=== PATIENT | male | born 1990 | race Hispanic/Latino ===

== ENCOUNTER 2019-09-19 01:06 | Emergency (ER) | payer OTHER, SELFPAY ==
[2019-09-19] MEDS ORDERED: Acetaminophen 500 MG TAB ONE (01:24)
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
== END 2019-09-19 01:53 | disposition home or self-care (01) ==
LOC: EDUNIT# 01:06 → MERGE 01:06 → ERS 01:06
DX: S90.31XA Contusion of right foot, initial encounter (principal); Z79.899 Other long term (current) drug therapy; K74.60 Unspecified cirrhosis of liver; F17.210 Nicotine dependence, cigarettes, uncomplicated; V19.9XXA Pedal cyclist (driver) (passenger) injured in unspecified traffic accident, initial encounter

== ENCOUNTER 2019-09-20 23:10 | Emergency (ER) | payer SELFPAY | END 2019-09-20 23:51 | disposition home or self-care (01) | LOC: EDUNIT# 23:10 → ERS 23:10 | DX: F10.10 Alcohol abuse, uncomplicated (principal); N17.9 Acute kidney failure, unspecified; I10 Essential (primary) hypertension; K74.60 Unspecified cirrhosis of liver; F41.9 Anxiety disorder, unspecified; Z79.899 Other long term (current) drug therapy | CPT/HCPCS: 99281 ==

== ENCOUNTER 2019-09-23 02:58 | Emergency (ER) | payer OTHER, SELFPAY ==
[2019-09-23] MEDS ORDERED: Oxymetazoline HCl 0.05% (30 ML BOT) ONE (03:46)
== END 2019-09-23 04:10 | disposition home or self-care (01) ==
LOC: ERS 02:58
DX: R04.0 Epistaxis (principal); I89.0 Lymphedema, not elsewhere classified; K74.60 Unspecified cirrhosis of liver; F32.9 Major depressive disorder, single episode, unspecified
CPT/HCPCS: 99283

== ENCOUNTER 2019-09-23 22:09 | Emergency (ER) | payer OTHER, SELFPAY ==
[2019-09-23 22:38] LABS: Bacteria/HPF None Seen HPF (None Seen); Bilirubin 1+ (Negative); Blood, Urine 2+ (Negative); Clarity Turbid (Clear); Glucose, Urine (Dipstick) Normal (Negative); Leukocyte Negative Leu/uL (Negative); Nitrite Negative (Negative); Protein, Urine (Dipstick) Negative (Neg-Trace); Squamous Epithelial 0-3 HPF (0-3); WBC/HPF 0-3 HPF (0-3)
[2019-09-23 22:47] LABS: Benzodiazepine Screen Detected (NotDetected); Medtox Reader # READER 4
[2019-09-23 22:48] LABS: Amphetamine Not Detected (NotDetected); Barbiturates Screen Not Detected (NotDetected); Cocaine Metabolite Screen Not Detected (NotDetected); Medtox Control Line Valid? VALID (VALID); Methadone Not Detected (NotDetected); Methamphetamine Not Detected (NotDetected); Opiate Screen Not Detected (NotDetected); Oxycodone Screen Not Detected (NotDetected); Phencyclidine (PCP) Not Detected (NotDetected); THC/Cannabinoid Screen Not Detected (NotDetected); Tricyclic Screen Not Detected (NotDetected)
== END 2019-09-23 23:45 | disposition home or self-care (01) ==
LOC: ERS 22:09
DX: R51 Headache (principal); K74.60 Unspecified cirrhosis of liver; F32.9 Major depressive disorder, single episode, unspecified
CPT/HCPCS: 80306; 81003; 81015; 99284

== ENCOUNTER 2019-09-24 21:56 | Emergency (ER) | payer SELFPAY | END 2019-09-24 23:52 | disposition left against medical advice (07) | LOC: ERS 21:56 → MERGE 21:56 → ERS 23:52 | DX: Z53.21 Procedure and treatment not carried out due to patient leaving prior to being seen by health care provider (principal) ==

== ENCOUNTER 2019-09-26 21:31 | Inpatient (IN) | payer SELFPAY ==
[2019-09-26 22:45] LABS: Bacteria/HPF None Seen HPF (None Seen); Bilirubin 1+ (Negative); Blood, Urine 2+ (Negative); Clarity Clear (Clear); Glucose, Urine (Dipstick) Normal (Negative); Leukocyte Negative Leu/uL (Negative); Nitrite Negative (Negative); Protein, Urine (Dipstick) Negative (Neg-Trace); Squamous Epithelial None Seen HPF (0-3); Urobilinogen Greater than 12 mg/dL (Less than 2); WBC/HPF 0-3 HPF (0-3)
[2019-09-26 22:53] LABS: #Basophils 0.1 thou/uL (0.0-0.2); #Eosinphils 0.1 thou/uL (0.0-0.7); #Lymphocytes 1.6 thou/uL (1.20-3.40); #Monocytes 0.3 thou/uL (0.11-0.59); %Basophils 1.6 % (0.0-1.0); %Eosinophils 1.6 % (0.0-10.0); %Lymphocytes 26.3 % (21.0-51.0); %Monocytes 4.7 % (0.0-10.0); %Neutrophils 65.7 % (42.0-75.0); Hemoglobin 11.1 g/dL (14.0-18.0); Mean Corpuscular HGB CONC 32.9 g/dL (32.0-36.0); Mean Corpuscular Hemoglobin 35.1 pg (27.0-31.0); Mean Platelet Volume 10.3 fL (7.4-10.4); Platelet Count 50 thou/uL (130-400); RBC Distribution Width 16.2 % (11.5-14.5); Red Blood Cell (RBC) Count 3.17 mill/uL (4.70-6.10); White Blood Cell (WBC) Count 6.1 thou/uL (4.8-10.8)
[2019-09-26 22:54] LABS: Amphetamine Not Detected (NotDetected); Barbiturates Screen Not Detected (NotDetected); Benzodiazepine Screen Detected (NotDetected); Cocaine Metabolite Screen Not Detected (NotDetected); Medtox Control Line Valid? VALID (VALID); Medtox Reader # READER 4; Methadone Not Detected (NotDetected); Methamphetamine Not Detected (NotDetected); Opiate Screen Not Detected (NotDetected); Oxycodone Screen Not Detected (NotDetected); Phencyclidine (PCP) Not Detected (NotDetected); THC/Cannabinoid Screen Not Detected (NotDetected); Tricyclic Screen Not Detected (NotDetected)
[2019-09-26 23:05] LABS: ALT (SGPT) 71 U/L (8-55); AST (SGOT) 155 U/L (5-34); Albumin 2.8 g/dL (3.5-5.0); Alkaline Phosphatase 188 U/L (40-110); Anion Gap 14 mmol/L (10-20); BUN (Urea Nitrogen) 6 mg/dL (8.9-20.6); Bilirubin, Total 8.5 mg/dL (0.2-1.2); Calc. Creatinine Clearance 0 mL/min (70-130); Calcium 7.9 mg/dL (7.8-10.44); Carbon Dioxide 27 mmol/L (22-29); Chloride 104 mmol/L (98-107); Estimated GFR-MDRD Greater than 90; Globulin 4.1 g/dL (2.4-3.5); Glucose 121 mg/dL (70-105); Lipase 50 U/L (8-78); Potassium 3.7 mmol/L (3.5-5.1); Protein, Total 6.9 g/dL (6.0-8.3); Sodium 141 mmol/L (136-145)
[2019-09-26 23:06] LABS: Acetaminophen Less than 6.0 mcg/mL (10.0-30.0); Alcohol 389 mg/dL (Less than 10); Magnesium 1.4 mg/dL (1.6-2.6); Salicylate Less than 8.0 mg/dL (15.0-30.0)
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
[2019-09-27] MEDS ORDERED: chlordiazePOXIDE HCl 25 MG CAP PO PRN (03:14)
[2019-09-27] MEDS ORDERED: Sodium Chloride 0.9% 1,000 ML IV SCH (03:15)
[2019-09-27] MEDS ORDERED: Ondansetron PF 4 MG/2 ML Vial IVP PRN (03:15)
[2019-09-27] MEDS ORDERED: Ondansetron ODT 4 MG TAB SL PRN (03:15)
[2019-09-27 03:42] VITALS: BMI 32.2
[2019-09-27] MEDS ORDERED: Diazepam 5 MG TAB PO PRN (03:58)
[2019-09-27] MEDS ORDERED: Diazepam 5 MG TAB PO SCH (04:00)
[2019-09-27] MEDS ORDERED: Folic Acid 1 MG TAB PO SCH (04:00)
[2019-09-27] MEDS ORDERED: Thiamine 100 MG TAB PO SCH (04:00)
[2019-09-27] MEDS ORDERED: Magnesium Oxide 400 MG TAB PO SCH (04:00)
[2019-09-27] MEDS: Acetaminophen 325 MG TAB PO PRN ×2 (04:30→09:27)
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
[2019-09-27 06:52] LABS: INR-International Normal Ratio 1.9; PTT 48.9 SEC (22.9-36.1); Prothrombin Time 21.4 sec (12.0-14.7)
[2019-09-27 07:06] LABS: Magnesium 1.4 mg/dL (1.6-2.6); Phosphorus 2.6 mg/dL (2.3-4.7)
--- NOTE | 2019-09-27 08:12 | ULT ---
Exam: Right upper quadrant ultrasound: HISTORY: Cirrhosis COMPARISON: 07/18/2017 FINDINGS: Liver: At the upper limits normal in size measuring 17 cm in craniocaudal dimensions. Mildly coarsene d hepatic echotexture is present which is nonspecific and similar to prior exam. This may be attributable to fatty infiltration. No focal hepatic lesion is appreciated. Upper evaluation of the m ain portal vein was performed which demonstrates abnormal directional flow with suggestion of hepatofugal flow in the main portal vein. Gallbladder: Shadowing echogenic foci are seen within the gallbladder lumen compatible with gallbladd er calculi. In addition, there is echogenic material in the gallbladder most compatible with sludge. No gallbladder wall thickening or pericholecystic fluid is identified. Common bile duct: Common duct is at the upper limits of normal in size measuring 0.6 cm in diameter. Pancreas: Completely obscured by bowel gas and not evaluated on this exam. Right kidney: Right kidney demonstrates a normal sonographic appearance. The right kidney measures 1 2.5 cm in length. IVC: The visualized IVC demonstrates a normal sonographic appearance. Tiny amount of free fluid is seen adjacent to the liver. IMPRESSION: 1. Suggestion of reversal of flow in the main portal vein with evidence of hepatofugal flow. Remainin g hepatic veins were not evaluated. 2. Coarsened echotexture of the liver which was also noted on prior exam and may be related to cirrho sis or fatty infiltration of the liver. 3. Cholelithiasis and gallbladder sludge. 4. Common duct is at the upper limits of normal in size measuring 0.6 cm in diameter.
[2019-09-27] MEDS ORDERED: Magnesium 2 GM/50 ML 2 GM in Premix Bag 1 BAG IVPB SCH (08:45)
[2019-09-27] MEDS ORDERED: Spironolactone 25 MG TAB PO SCH ×2 (08:45→17:00)
[2019-09-27] MEDS ORDERED: Multivit, Therapeutic 1 TAB PO SCH (09:00)
[2019-09-27] MEDS ORDERED: Multivitamins, Adult 10 ML, Folic Acid 1 MG, Thiamine HCl 100 MG in Dextrose 5 %-0.45 %... IV SCH (11:15)
[2019-09-27 16:12] VITALS: TEMP 98.5
[2019-09-27 18:12] VITALS: BP 103/66
[2019-09-28] MEDS ORDERED: Diazepam 5 MG TAB PO PRN (04:00)
[2019-09-28] MEDS ORDERED: Folic Acid 1 MG TAB PO SCH (09:00)
[2019-09-28] MEDS ORDERED: Magnesium Oxide 400 MG TAB PO SCH (09:00)
[2019-09-28] MEDS ORDERED: Thiamine 100 MG TAB PO SCH (09:00)
--- NOTE | 2019-09-28 09:57 | DIS ---
DATE OF ADMISSION: 09/26/2019 DATE OF DISCHARGE: 09/27/2019 ADMITTING ATTENDING: Hemanth Ching MD DISCHARGE ATTENDING: Manuel Noriega MD RESIDENT: Carmen Ivy MD CONSULTS: None. PROCEDURES: Abdominal ultrasound. Impression: Reversal flow in the main portal vein, coarsened echotexture of liver related to cirrhosis or fatty infiltration of the liver, cholelithiasis and gallbladder sludge, common bile duct at the upper limits of normal in size. PRIMARY DIAGNOSES: 1. Alcohol intoxication. 2. Cirrhosis secondary to alcohol abuse. 3. Hyperbilirubinemia. 4. Thrombocytopenia. DISCHARGE MEDICATIONS: 1. Thiamine 100 mg p.o. daily. 2. Multivitamin one tablet p.o. daily. 3. Folic acid 1 mg p.o. daily. 4. Sertraline 50 mg p.o. at bedtime. 5. Desvenlafaxine 50 mg p.o. daily. 6. Spironolactone 50 mg p.o. daily. 7. Magnesium 400 mg p.o. daily. Discontinued medications: 1. Chlordiazepoxide 40 mg p.o. 4 times daily as needed for withdrawal. HISTORY OF PRESENT ILLNESS AND HOSPITAL COURSE: This 28-year-old male with past medical history of alcohol abuse and cirrhosis, who presented acutely intoxicated. He reports that he was drinking too much the evening of admission. He came to the ER because he "needed help." He had tried to reach out other rehab places as an outpatient, but he does not have any insurance. The patient has a history of seizures due to alcohol withdrawal. The patient was admitted and placed on ASE protocol. Abdominal ultrasound was performed with the finding dictated as above. The patient's MELD score was 22, which was not much changed from previous admissions. His MELD score represents a 19.6% three month mortality. His Maddrey discriminant function test was 51.7, which indicates a poor prognosis. The patient did not have any withdrawal symptoms while he was here. He was discharged and counseled to discontinue chlordiazepoxide if he continues to drink alcohol. He is currently uninsured. We reached out to Case Management, and they recommended that his only option was to call [facility] to schedule as an outpatient for alcohol rehab therapy. DISPOSITION: Stable. PROGNOSIS: Poor. DISCHARGE INSTRUCTIONS: 1. Location: Home. 2. Diet: Regular. 3. Activity: As tolerated. 4. Recommend alcohol cessation. 5. Follow up with primary care provider in 3 to 7 days. Job ID: [id number] MTDD
--- NOTE | 2019-10-01 15:19 | EKG ---
Test Reason : Blood Pressure : / mmHG Vent. Rate : 106 BPM Atrial Rate : 106 BPM P-R Int : 164 ms QRS Dur : 096 ms QT Int : 360 ms P-R-T Axes : 044 019 034 degrees QTc Int : 478 ms Sinus tachycardia Otherwise normal ECG Confirmed by BELINDA LEAL DO ([id number]), editor city [place] ([id number]) on 10/01/2019 3:19:15 PM Referred By: Confirmed By:BELINDA LEAL DO
== END 2019-09-27 18:07 | disposition home or self-care (01) | DRG 897 ==
LOC: ERS 21:31 → 2NO 23:28 → MERGE 23:28
PROVIDERS: ADMIT Emergency Medicine; ATTEND Emergency Medicine
DX: F10.229 Alcohol dependence with intoxication, unspecified (principal); R44.3 Hallucinations, unspecified; K70.30 Alcoholic cirrhosis of liver without ascites; E80.6 Other disorders of bilirubin metabolism; D69.6 Thrombocytopenia, unspecified; F41.9 Anxiety disorder, unspecified; F32.9 Major depressive disorder, single episode, unspecified; Y90.8 Blood alcohol level of 240 mg/100 ml or more; Z88.8 Allergy status to other drugs, medicaments and biological substances; Z79.899 Other long term (current) drug therapy
CPT/HCPCS: 36415; 76705; 80053; 80306; 80307; 81003; 81015; 83690; 83735; 84100; 85025; 85610; 85730; 93005; J3411; J3475; J7042; Q0162

== ENCOUNTER 2019-10-01 05:48 | Emergency (ER) | payer OTHER, SELFPAY | END 2019-10-01 06:11 | disposition home or self-care (01) | LOC: EDUNIT# 05:48 → ERS 05:48 | DX: G89.29 Other chronic pain (principal); F10.20 Alcohol dependence, uncomplicated; I10 Essential (primary) hypertension; F41.9 Anxiety disorder, unspecified; F32.9 Major depressive disorder, single episode, unspecified; Z79.899 Other long term (current) drug therapy | CPT/HCPCS: 99281 ==

== ENCOUNTER 2019-10-06 22:51 | Emergency (ER) | payer OTHER | END 2019-10-07 00:58 | disposition home or self-care (01) | LOC: ERS 22:51 | DX: Z76.5 Malingerer [conscious simulation] (principal); F10.20 Alcohol dependence, uncomplicated; F41.9 Anxiety disorder, unspecified; F32.9 Major depressive disorder, single episode, unspecified; I10 Essential (primary) hypertension; K74.60 Unspecified cirrhosis of liver | CPT/HCPCS: 99281 ==

== ENCOUNTER → 2019-11-28 | Emergency (ER) | payer SELFPAY ==
[~2019-11-28] MED LIST: Multivitamins, Adult 10 ML, Folic Acid 1 MG in Dextrose 5 %-0.45 % NaCl 1,000 ML IV SCH; Ondansetron PF 4 MG/2 ML Vial ONE; Sodium Chloride 0.9% 500 ML IVPB SCH; chlordiazePOXIDE HCl 25 MG CAP ONE; chlordiazePOXIDE HCl 25 MG CAP PO PRN
[2019-11-28 03:17] LABS: #Basophils 0.1 thou/uL (0.0-0.2); #Eosinphils 0.1 thou/uL (0.0-0.7); #Monocytes 0.5 thou/uL (0.11-0.59); #Neutrophils 2.8 thou/uL (1.40-6.50); %Basophils 1.8 % (0.0-1.0); %Eosinophils 1.5 % (0.0-10.0); %Lymphocytes 36.5 % (21.0-51.0); %Monocytes 9.7 % (0.0-10.0); %Neutrophils 50.5 % (42.0-75.0); Hemoglobin 10.4 g/dL (14.0-18.0); Mean Corpuscular Hemoglobin 36.8 pg (27.0-31.0); Mean Platelet Volume 10.2 fL (7.4-10.4); Platelet Count 40 thou/uL (130-400); RBC Distribution Width 15.5 % (11.5-14.5); Red Blood Cell (RBC) Count 2.83 mill/uL (4.70-6.10); White Blood Cell (WBC) Count 5.4 thou/uL (4.8-10.8)
[2019-11-28 03:37] LABS: Sodium 133 mmol/L (136-145)
[2019-11-28 03:38] LABS: ALT (SGPT) 49 U/L (8-55); AST (SGOT) 152 U/L (5-34); Albumin 2.9 g/dL (3.5-5.0); Alcohol 395 mg/dL (Less than 10); Alkaline Phosphatase 196 U/L (40-110); Anion Gap 13 mmol/L (10-20); BUN (Urea Nitrogen) 6 mg/dL (8.9-20.6); Bilirubin, Total 11.6 mg/dL (0.2-1.2); CK (CPK) 482 U/L (30-200); Calc. Creatinine Clearance 0 mL/min (70-130); Calcium 7.8 mg/dL (7.8-10.44); Carbon Dioxide 26 mmol/L (22-29); Chloride 98 mmol/L (98-107); Estimated GFR-MDRD Greater than 90; Globulin 4.2 g/dL (2.4-3.5); Glucose 167 mg/dL (70-105); Potassium 3.6 mmol/L (3.5-5.1); Protein, Total 7.1 g/dL (6.0-8.3); Salicylate Less than 8.0 mg/dL (15.0-30.0)
[2019-11-28 07:34] LABS: Amphetamine Not Detected (NotDetected); Barbiturates Screen Not Detected (NotDetected); Benzodiazepine Screen Detected (NotDetected); Cocaine Metabolite Screen Not Detected (NotDetected); Medtox Control Line Valid? VALID (VALID); Medtox Reader # READER 4; Methadone Not Detected (NotDetected); Methamphetamine Not Detected (NotDetected); Opiate Screen Not Detected (NotDetected); Oxycodone Screen Not Detected (NotDetected); Phencyclidine (PCP) Not Detected (NotDetected); THC/Cannabinoid Screen Not Detected (NotDetected); Tricyclic Screen Not Detected (NotDetected)
[2019-11-28 10:59] LABS: Alcohol 309 mg/dL (Less than 10)
== END ==
LOC: ERS 02:32
DX: F10.229 Alcohol dependence with intoxication, unspecified (principal); Y90.4 Blood alcohol level of 80-99 mg/100 ml; R45.851 Suicidal ideations; R11.10 Vomiting, unspecified; R19.7 Diarrhea, unspecified; I10 Essential (primary) hypertension; K74.60 Unspecified cirrhosis of liver; F41.9 Anxiety disorder, unspecified; F32.9 Major depressive disorder, single episode, unspecified; Z79.899 Other long term (current) drug therapy
CPT/HCPCS: 36415; 80053; 80306; 80307; 82550; 85025; 93005; 96361; 96365; 96366; 96367; 96375; 96376; J2405; J3411; J7042